=== PATIENT | female | born 1950 | race Caucasian/White ===

== ENCOUNTER 2018-08-03 18:50 | Inpatient (IN) | payer MEDICARE, OTHER ==
[~2018-08-03] VITALS: Ht 160 cm; Wt 71.4 kg
[2018-08-03 19:49] LABS: BASOPHILS ABSOLUTE AUTO 0.02 K/mm3 (0.00-0.23); BASOPHILS PERCENT AUTO 0 % (0-2); EOSINOPHILS PERCENT AUTO 0 % (0-6); Hematocrit 47.8 % (33.0-51.0); Hemoglobin 15.8 g/dL (11.5-16.0); IMMATURE GRAN ABSOLUTE AUTO 0.01 K/mm3 (0.00-0.10); IMMATURE GRAN PERCENT AUTO 0 % (0-1); LYMPHOCYTES ABSOLUTE AUTO 0.83 K/mm3 (0.84-5.20); LYMPHOCYTES PERCENT AUTO 11 % (21-46); MONOCYTES ABSOLUTE AUTO 0.45 K/mm3 (0.16-1.47); MONOCYTES PERCENT AUTO 6 % (4-13); Mean Corpuscular HGB 30.6 pg (26.0-34.0); Mean Corpuscular HGB Conc 33.1 g/dL (31.5-36.5); Mean Corpuscular Volume 93 fL (80-100); NEUTROPHILS ABSOLUTE AUTO 6.32 K/mm3 (1.96-9.15); NEUTROPHILS PERCENT AUTO 83 % (41-73); Platelet Count 181 K/mm3 (150-400); RDW Coefficient Variation 13.1 % (11.7-14.2); RDW Standard Deviation 44.9 fL (35.1-46.3); Red Blood Cell Count 5.17 M/mm3 (3.80-5.20); White Blood Cell Count 7.63 K/mm3 (4.00-11.30)
[2018-08-03 20:08] LABS: Alanine Aminotransfer (ALT/SGP 34 U/L (12-78); Albumin, Blood 3.9 g/dL (3.4-5.0); Alk Phos 74 U/L (50-136); Anion Gap 7 mmol/L (6-16); Aspartate Aminotrans (AST/SGOT 17 U/L (12-37); Bilirubin, Total 0.5 mg/dL (0.1-1.0); Blood Urea Nitrogen 15 mg/dL (8-24); Bun/Creatinine Ratio 27.4 (12.0-20.0); CO2, Blood 28 mmol/L (21-32); Calcium, Blood 9.4 mg/dL (8.5-10.1); Chloride, Blood 100 mmol/L (98-108); Creatinine, Blood 0.55 mg/dL (0.40-1.00); Glomerular Filtration Rate >60 (60-); Glucose, Blood 131 mg/dL (70-99); Potassium, Blood 3.4 mmol/L (3.5-5.5); Sodium, Blood 135 mmol/L (136-145); Total Protein, Blood 7.9 g/dL (6.4-8.2); Troponin I <0.015 ng/mL (0.000-0.040)
[2018-08-03] MEDS ORDERED: ALBU90OI6 INH (23:15)
[2018-08-03] MEDS ORDERED: Atrovent Inha12.9 GM INH (23:16)
[2018-08-03] MEDS ORDERED: STIOLTO RESPIMAT4 GM INH (23:16)
[2018-08-03] MEDS ORDERED: MONT10T PO (23:17)
[2018-08-03] MEDS ORDERED: NIFE60ER PO (23:17)
[2018-08-03] MEDS ORDERED: HYDCHL25 PO (23:18)
[2018-08-03 23:25] LABS: Base Excess Venous 3.2 mmol/L; Bicarbonate Venous 26.3 mmol/L (24.0-30.0); PCO2 Venous 50.5 mmHg (38-42); PO2 Venous 90.1 mmHg (38-42); pH Blood Venous 7.36 (7.34-7.37)
--- NOTE | 2018-08-04 02:09 | NUR ---
SHIFT SUMMARY 0115 RECEIVED PT TO RM 301 VIA GURNEY FROM ER. PT A&O, ABLE TO TX SELF WITH SBA TO BED. RECEIVED REPORT FROM KATHY WRIGHT, PT ADMITTED FOR COPD EXAC AFTER GOING TO [facility] WITH C/O SINUS CONGESTION, CHEST TIGHTNESS, AND WHEEZING. PT RECEIVED MULTIPLE NEB TX'S IN ER, ALONG WITH SOLUMEDROL, 1L NS, AND ZITHROMAX. PT ABLE TO TX TO BSC AND BACK TO BED, BUT BECOMES VERY SOB WITH ANY ACTIVITY. RESPIRATORY PANEL OBTAINED PER ORDERS. LUNGS T/O VERY TIGHT WITH EXP WHEEZES THRU OUT. CALL LT IN REACH. WILL MONITOR.
[2018-08-04 03:30] LABS: Adenovirus Not Detected (NOT DETECT); Bordetella pertussis Not Detected (NOT DETECT); Chlamydophila pneumoniae Not Detected (NOT DETECT); Coronavirus 229E Not Detected (NOT DETECT); Coronavirus HKU1 Not Detected (NOT DETECT); Coronavirus NL63 Not Detected (NOT DETECT); Coronavirus OC43 Detected (NOT DETECT); Human Metapneumovirus Not Detected (NOT DETECT); Human Rhinovirus/Enterovirus Not Detected (NOT DETECT); Influenza A Not Detected (NOT DETECT); Influenza A/2009-H1 Not Detected (NOT DETECT); Influenza A/H1 Not Detected (NOT DETECT); Influenza A/H3 Not Detected (NOT DETECT); Influenza B Not Detected (NOT DETECT); Mycoplasma pneumoniae Not Detected (NOT DETECT); Parainfluenza Virus 1 Not Detected (NOT DETECT); Parainfluenza Virus 2 Not Detected (NOT DETECT); Parainfluenza Virus 3 Not Detected (NOT DETECT); Parainfluenza Virus 4 Not Detected (NOT DETECT); Respiratory Syncytial Virus Not Detected (NOT DETECT)
--- NOTE | 2018-08-04 18:08 | NUR ---
SUMMARY PT IS A/O X4, PLEASANT AFFECT. UP IND, STATE SHORT OF BREATH W EXERT HOWEVER HAS IMPROVED T/O DAY. SHE IS GETTING SCHEDULED NEB TX'S & SOLUMEDROL. LUNGS TIGHT, WHEEZY, OCCASIONAL COUGH. O2 @ 1.5L BIOX >90% DX COPD EXAC, SHE IS + FOR CORONAVIRUS, RECIEVING ORAL ANTIBX. AFEBRILE, VSS.
[2018-08-05 04:47] LABS: BASOPHILS ABSOLUTE AUTO 0.02 K/mm3 (0.00-0.23); BASOPHILS PERCENT AUTO 0 % (0-2); EOSINOPHILS PERCENT AUTO 0 % (0-6); Hematocrit 44.8 % (33.0-51.0); Hemoglobin 14.5 g/dL (11.5-16.0); IMMATURE GRAN ABSOLUTE AUTO 0.07 K/mm3 (0.00-0.10); IMMATURE GRAN PERCENT AUTO 1 % (0-1); LYMPHOCYTES ABSOLUTE AUTO 1.35 K/mm3 (0.84-5.20); LYMPHOCYTES PERCENT AUTO 10 % (21-46); MONOCYTES ABSOLUTE AUTO 0.67 K/mm3 (0.16-1.47); MONOCYTES PERCENT AUTO 5 % (4-13); Mean Corpuscular HGB Conc 32.4 g/dL (31.5-36.5); Mean Platelet Volume 9.6 fL (9.1-12.4); NEUTROPHILS ABSOLUTE AUTO 11.14 K/mm3 (1.96-9.15); NEUTROPHILS PERCENT AUTO 84 % (41-73); Platelet Count 178 K/mm3 (150-400); RDW Coefficient Variation 13.2 % (11.7-14.2); RDW Standard Deviation 46.6 fL (35.1-46.3); Red Blood Cell Count 4.67 M/mm3 (3.80-5.20); White Blood Cell Count 13.25 K/mm3 (4.00-11.30)
[2018-08-05 05:04] LABS: Albumin, Blood 3.1 g/dL (3.4-5.0); Anion Gap 5 mmol/L (6-16); Blood Urea Nitrogen 16 mg/dL (8-24); Bun/Creatinine Ratio 33.6 (12.0-20.0); CO2, Blood 29 mmol/L (21-32); Calcium, Blood 8.8 mg/dL (8.5-10.1); Chloride, Blood 107 mmol/L (98-108); Creatinine, Blood 0.48 mg/dL (0.40-1.00); Glomerular Filtration Rate >60 (60-); Glucose, Blood 118 mg/dL (70-99); Magnesium, Blood 2.3 mg/dL (1.6-2.4); Phosphorus, Blood 2.8 mg/dL (2.5-4.9); Sodium, Blood 141 mmol/L (136-145)
[2018-08-05 05:07] LABS: Mean Corpuscular Volume 96 fL (80-100)
--- NOTE | 2018-08-05 17:20 | NUR ---
SHFIFT SUMMARY. A&OX4, INDEPENDENT TO BATHROOM, NO SAFETY CONCERNS. PT CONTINUES TO NOT REQUIRE O2, REPORTS SOB WITH EXERTION, LUNGS WITH MILD WHEEZING/TIGHT. PT DENIES PAIN, N/V. NO NEW CHANGES.
--- NOTE | 2018-08-06 16:46 | NUR ---
1630 PT DISCHARGED HOME VIA PERSONAL VEHICLE, PT REQUESTED TO SELF AMBULATE TO FACILITY ENTRANCE. IV REMOVED. NEW RX FAXED TO [facility] PER PT REQUEST. D/C PAPERWORK REVIEWED WITH PT AND COPY PROVIDED. NO NEW CHANGES. PT HAS DENEIED CP SINCE ADMISSION.
--- NOTE | 2018-08-06 18:17 | NUR ---
SHIFT SUMMARY. PT REPORTS FEELING A LITTLE BETTER TODAY COMPARED TO YESTERDAY. STILL SOB WITH EXERTOIN, CONTINUES WITH MILD WHEEZES T/O, ON RA. SOLUMEDROL CHANGED TO PREDNISONE. PT DENIES PAIN, SOB, N/V.
--- NOTE | 2018-08-07 05:52 | NUR ---
SOUND EFFECTS SUPERVISOR SUMMARY NO ACUTE CHANGES THIS SHIFT. PT AAOX4 AND INDEPENDENT IN ROOM. VERY PLEASANT. STATES BREATHING "IS BETTER" BUT STILL A BIT SOB WITH EXERTION. PT RECOVERS WELL WITHIN A FEW MINUTES OF SITTING DOWN ON ROOM AIR. PT DENIES PAIN. NO COMPLAINTS THROUGH THE NIGHT. VSS, WILL CONTINUE TO MONITOR.
--- NOTE | 2018-08-07 18:03 | NUR ---
SHIFT SUMMARY. PT DID NOT REQUIRE O2 DURING THIS SHIFT, LUNGS SOUNDS STILL WITH WHEEZES T/O, ALTHOUGH HAVE IMPROVED FROM YESTERDAY. HOME O2 EVAL REVEALED PT DID NOT QUALIFY FOR HOME O2. PT CONTINUES WITH SOB WITH EXERTION. PT ONLY TOLERATING APROXIMATELY 10FT OF AMBULATION AT TIME. NO OTHER CHANGES.
--- NOTE | 2018-08-08 04:46 | NUR ---
DIRECTOR DANCE SUMMARY NO ACUTE CHANGES THIS SHIFT. PT AAOX4 AND INDEPENDENT IN THE ROOM. O2 SATS REMAIN >90% ON ROOM AIR. PT REPORTS LESS SOB WITH EXERTION. DENIES PAIN, N/V. HOME O2 EVAL DURING DAY SHIFT REVEALED PT DOES NOT NEED O2 AT HOME AT THIS TIME. PROBABLY DC LATER TODAY. VSS, WILL CONTINUE TO MONITOR.
--- NOTE | 2018-08-08 09:06 | NUR ---
Medications administered. Pt refused Lovenox.
--- NOTE | 2018-08-08 09:06 | NUR ---
Pt gave permission to provide care and access chart.
[2018-08-08] MEDS ORDERED: CITRACAL D + H1 EACH (10:55)
[2018-08-08] MEDS ORDERED: Flonase 0.05% N16 GM (10:56)
[2018-08-08] MEDS ORDERED: SEEBRI NEOHALER (11:03)
[2018-08-08] MEDS ORDERED: MELATONIN5 M1 PO (11:04)
[2018-08-08] MEDS ORDERED: Mucinex1200 MG PO (11:04)
[2018-08-08] MEDS ORDERED: DULERA 200 MCG/13 GM INH (11:05)
[2018-08-08] MEDS ORDERED: PRED20 (11:11)
[2018-08-08] MEDS ORDERED: (None)20 M1 PO (12:39)
[2018-08-08] MEDS ORDERED: TIOT18 INH (12:40)
[2018-08-08] MEDS ORDERED: FLUT1DIS5 INH (12:44)
--- NOTE | 2018-08-08 16:41 | NUR ---
PT DISCHARGED PT WAS DC'D AROUND 1330, PT VERBALIZED UNDERSTANDING OF THE DC INSTRUCTIONS, THE PT WAS A/OX3 PLEASANT AND COOPERATIVE, THE PT APPEARED TO BE BREATHING EASILY AT DISCHARGE, THE PTS PERSCRIPTION WERE FAXED TO [facility] REQUESTED, THE PT WAS TRANSFERED VIA WHEELCHAIR ACCOMPANIED BY FAMILY AND THE AUTOMOTIVE TECHNOLOGY INSTRUCTOR.
== END 2018-08-08 13:05 | disposition home or self-care (01) | DRG 189 ==
LOC: ER 18:50 → MEDS 23:31 → ENPENDDIS 08-08 10:36 → MEDS 08-08 13:05
PROVIDERS: Emergency Medicine; Internal Medicine; Nurse Practitioner Acute Care; Physician Assistant; ADMIT Hospitalist
DX: J96.01 Acute respiratory failure with hypoxia (principal); J81.1 Chronic pulmonary edema; M81.0 Age-related osteoporosis without current pathological fracture; E87.6 Hypokalemia; R73.9 Hyperglycemia, unspecified; Z87.891 Personal history of nicotine dependence; I10 Essential (primary) hypertension; J43.9 Emphysema, unspecified; D35.01 Benign neoplasm of right adrenal gland
CPT/HCPCS: 36415; 71046; 71260; 80053; 80069; 82803; 83605; 83735; 84484; 85025; 87486; 87581; 87633; 87798; 93005; 93010; 94640; 94644; 94760; 94761; 96361; 96374; 97116; 97161; 99285-25; J1650; J2930; J7030; Q9967

== ENCOUNTER → 2019-01-01 | Outpatient (CLI) | payer MEDICARE, OTHER ==
[~2019-01-01] MED LIST: (None)20 M1 PO; ALBU90OI6 INH; Atrovent Inha12.9 GM INH; CITRACAL D + H1 EACH; DULERA 200 MCG/13 GM INH; FLUT1DIS5 INH; Flonase 0.05% N16 GM; HYDCHL25 PO; MELATONIN5 M1 PO; MONT10T PO; Mucinex1200 MG PO; NIFE60ER PO; PRED20; SEEBRI NEOHALER; STIOLTO RESPIMAT4 GM INH; TIOT18 INH
== END | disposition home or self-care (01) ==
LOC: PLD 08:22 → LAB SHORT 08:22
DX: D22.71 Melanocytic nevi of right lower limb, including hip (principal)
CPT/HCPCS: 88305

== ENCOUNTER 2019-06-15 12:34 | Day surgery (SDC) | payer MEDICARE, OTHER ==
[~2019-06-15] VITALS: Ht 157.5 cm; Wt 74.4 kg
--- NOTE | 2019-06-15 13:52 | NUR ---
06/15/19 1352 Christi Kramer 1 IV MISS IN RH BY TENA VALVE 1 GOOD IV IN RAC BY TENA PT TOW
== END 2019-06-15 15:35 | disposition home or self-care (01) ==
LOC: ORSCSDS 12:34
PROVIDERS: Internal Medicine Gastroenterology
PROC: 0DBP8ZX Excision of Rectum, Via Natural or Artificial Opening Endoscopic, Diagnostic (ICD-10-PCS; principal; 2019-06-15 14:15)
DX: Z12.11 Encounter for screening for malignant neoplasm of colon (principal); Z86.010 Personal history of colon polyps; K62.1 Rectal polyp; K57.30 Diverticulosis of large intestine without perforation or abscess without bleeding; J44.9 Chronic obstructive pulmonary disease, unspecified; K21.9 Gastro-esophageal reflux disease without esophagitis; I10 Essential (primary) hypertension; E66.9 Obesity, unspecified; I49.9 Cardiac arrhythmia, unspecified; Z68.30 Body mass index [BMI] 30.0-30.9, adult; K62.89 Other specified diseases of anus and rectum; K52.9 Noninfective gastroenteritis and colitis, unspecified; Z87.891 Personal history of nicotine dependence; Z79.899 Other long term (current) drug therapy
CPT/HCPCS: 88305; J2704; J7120

== ENCOUNTER → 2020-03-19 | Outpatient (CLI) | payer MEDICARE, OTHER | END | disposition home or self-care (01) | LOC: PLD 14:05 → LAB SHORT 14:05 | DX: D22.61 Melanocytic nevi of right upper limb, including shoulder (principal) | CPT/HCPCS: 88305 ==

== ENCOUNTER 2023-10-03 15:05 | Emergency (ER) | payer MEDICARE, OTHER ==
[~2023-10-03] VITALS: Ht 162.6 cm; Wt 68.0 kg
[~2023-10-03 15:05] MED LIST changes: -ALBU90OI6 INH; +ATOR40TA PO; +METO50 PO; +PROAIR DIGIHAL90 MCG INH; +STIOLTO RESPIMAT4 G2 INH; -STIOLTO RESPIMAT4 GM INH; +XARELTO20 MG PO
[2023-10-03 15:06] VITALS: BP 192/82
[2023-10-03] MEDS ORDERED: CEPH500 PO (15:15)
== END 2023-10-03 15:18 | disposition home or self-care (01) ==
LOC: ER 15:05
DX: L03.114 Cellulitis of left upper limb (principal); Z87.891 Personal history of nicotine dependence
CPT/HCPCS: 99283

== ENCOUNTER 2023-12-15 12:11 | Inpatient (IN) | payer MEDICARE, OTHER ==
[~2023-12-15] VITALS: Ht 157.5 cm; Wt 74.0 kg
[~2023-12-15 12:11] MED LIST changes: +CEPH500 PO
[2023-12-15 13:39] LABS: BASOPHILS ABSOLUTE AUTO 0.05 K/mm3 (0.00-0.23); BASOPHILS PERCENT AUTO 1 % (0-2); EOSINOPHILS ABSOLUTE AUTO 0.07 K/mm3 (0.00-0.68); EOSINOPHILS PERCENT AUTO 1 % (0-6); Hematocrit 43.9 % (33.0-51.0); Hemoglobin 14.4 g/dL (11.5-16.0); IMMATURE GRAN ABSOLUTE AUTO 0.01 K/mm3 (0.00-0.10); IMMATURE GRAN PERCENT AUTO 0 % (0-1); LYMPHOCYTES ABSOLUTE AUTO 1.62 K/mm3 (0.84-5.20); LYMPHOCYTES PERCENT AUTO 19 % (21-46); MONOCYTES ABSOLUTE AUTO 0.65 K/mm3 (0.16-1.47); MONOCYTES PERCENT AUTO 8 % (4-13); Mean Corpuscular HGB 30.6 pg (26.0-34.0); Mean Corpuscular HGB Conc 32.8 g/dL (31.5-36.5); Mean Corpuscular Volume 93 fL (80-100); Mean Platelet Volume 8.8 fL (9.1-12.4); NEUTROPHILS ABSOLUTE AUTO 5.98 K/mm3 (1.96-9.15); NEUTROPHILS PERCENT AUTO 71 % (41-73); Platelet Count 192 K/mm3 (150-400); RDW Coefficient Variation 12.8 % (11.7-14.2); RDW Standard Deviation 44.3 fL (35.1-46.3); White Blood Cell Count 8.38 K/mm3 (4.00-11.30)
[2023-12-15 14:06] LABS: Albumin, Blood 3.6 g/dL (3.4-5.0); Bilirubin, Total 0.5 mg/dL (0.1-1.0); Bun/Creatinine Ratio 26.8 (12.0-20.0); Calcium, Blood 9.2 mg/dL (8.5-10.1); Creatinine, Blood 0.86 mg/dL (0.40-1.00); Globulin, Blood 3.7 g/dL (2.2-4.0); Potassium, Blood 4.2 mmol/L (3.5-5.5); Total Protein, Blood 7.3 g/dL (6.4-8.2)
[2023-12-15] MEDS ORDERED: MethylPREDNISolone Sod Succ 125 MG Vial IV ONE (14:25)
[2023-12-15] MEDS ORDERED: Ipratropium/Albuterol SulF 2.5-0.5MG/3 ML Amp INH ONE (14:25)
[2023-12-15 15:29] LABS: Influenza A, PCR NEGATIVE (NEGATIVE); Influenza B, PCR NEGATIVE (NEGATIVE); Resp Syncytial Virus, PCR NEGATIVE (NEGATIVE); SARS-Cov-2 (COVID-19) PCR, MMC NEGATIVE (NEGATIVE)
[2023-12-15] MEDS ORDERED: LOSA25 PO (15:35)
[2023-12-15] MEDS ORDERED: Furosemide 10 MG / ML 2ML Vial IV ONE (16:00)
[2023-12-15] MEDS ORDERED: Diltiazem HCl 5 MG / ML 5ML Vial IV ONE (16:00)
[2023-12-15] MEDS ORDERED: Acetaminophen 325 MG TABLET PO PRN (17:40)
[2023-12-15] MEDS ORDERED: Albuterol 2.5 MG/3 ML VIAL INH PRN (17:40)
[2023-12-15] MEDS ORDERED: Ipratropium/Albuterol SulF 2.5-0.5MG/3 ML Amp INH SCH ×2 (17:50→22:36)
[2023-12-15] MEDS ORDERED: Metoprolol Tartrate 50 MG Tab PO ONE (20:00)
[2023-12-15] MEDS ORDERED: Rivaroxaban 10 MG Tab PO ONE (20:00)
[2023-12-15] MEDS ORDERED: Rivaroxaban 10 MG Tab PO SCH (21:00)
[2023-12-15 22:00] VITALS: BP 126/97
[2023-12-15] MEDS ORDERED: TRIA15CR3 TOP (22:13)
[2023-12-15] MEDS ORDERED: METR59TL TOP (22:15)
--- NOTE | 2023-12-16 05:54 | NUR ---
PT TO ROOM AT 2152 FROM ER AND ASSUMED CARE PT AOX4 ABLE TO TRANSFER FROM [facility] TO BED W/O PROBLEM. PT DAUGHTER AT BEDSID. PT ABLE TO ANSWER ALL ADMIT QUESTIONS AND HAD MED LIST PRESENT WHICH WAS REVIEWED WITH PT. PT PLACED ON MONITOR AND NOTED TO BE IN A.FIB W/RVR AND WAS ON CARDIZEM DRIP FROM ED AT 5MG/HR. PT HR DID IMPROVE AND DR. PEREZ CALLED AND OBTAINED ORDER TO D/C DRIP. PT MAINTAINED HR WITHIN PARAMETERS AND HAS REMAINED OFF DILTIAZEM DRIP. PT IS HOME O2 USER AT BASELINE AND REMAINS AT HOME O2 RATE OF 2L MAINTAINING GOOD SAT. PT ABLE TO USE BEDSIDE COMMODE WITH SBA. VITAL SIGNS REMAIN STABLE. PT REMAINS ORIENTED, CALM, COOPERATIVE, AND PLEASANT. SEE DOWNTIME FORMS FOR OTHER SHIFT CHARTING.
[2023-12-16] MEDS ORDERED: Metoprolol Tartrate 50 MG Tab PO SCH ×2 (08:00→17:00)
[2023-12-16] MEDS ORDERED: Losartan Potassium 25 MG Tab PO SCH (09:00)
[2023-12-16] MEDS ORDERED: Montelukast Sodium 10 MG Tab PO SCH (09:00)
[2023-12-16] MEDS ORDERED: Rivaroxaban 10 MG Tab PO SCH (09:00)
[2023-12-16] MEDS ORDERED: Atorvastatin 40 MG Tab PO SCH (09:00)
[2023-12-16 12:00] VITALS: BP 115/60
[2023-12-16 16:30] VITALS: BP 125/77
--- NOTE | 2023-12-16 17:47 | NUR ---
PT HAD CONVERTED FROM AFIB TO NSR THIS MORNING AND HAS REMAINED IN SR-ST SINCE. SHE AMBULATED IN THE [place] TODAY WITHOUT DIFFICULTY. SHE WAS HOPEFUL TO GO HOME TODAY BUT DUE TO DOSE INCREASE AND NO ONE BEING ABLE TO HELP HER THIS EVENING AT HOME SHE OPTED TO STAY THE NIGHT. FRIEND CAME TO THE DESK ASKING WHY PATIENT HAS NOT HAD INCREASED DOSE IN LOPRESSOR, SHE IS UDPATED THAT LOPRESSOR IS DUE THIS EVENING. FRIEND THEN STATES THAT PATIENT IS TO BE THE FIRST PERSON SEEN IN THE AM BY AND WOULD LIKE TO KNOW WHEN THEY PLAN TO ROUND, SHE IS UPDATED THAT I DO NOT HAVE A TIME FOR HIS ROUNDING TOMORROW. PLAN IS TO D/C TOMORROW
[2023-12-16] MEDS ORDERED: Calcium Carbonate 500 MG Tab Chew PO PRN (18:35)
[2023-12-16 20:23] VITALS: BP 129/56
[2023-12-16] MEDS ORDERED: Metoprolol Tartrate 50 MG Tab PO ONE (21:10)
--- NOTE | 2023-12-16 21:16 | NUR ---
CONFIRMED WITH PRIMARY RN FOR DAYSJORGE COLMENARES TO CONFIRM 1700 DOSE OF METOPROLOL WAS NOT GIVEN. SHE STATES PER DOWNTIME CHARTING 0800 DOSE WAS GIVING TO PT @ 0820 IN PAPER JUL, 1700 DOSE WAS NOT GIVEN AT ALL. ORDER PLACED FOR EVENING DOSE OF METOPROLOL X1 TO ENSURE PT RECEIVED 2ND DOSE TODAY PER WRITTEN ORDERS.
[2023-12-16 23:59] VITALS: BP 117/58
[2023-12-17 04:02] VITALS: BP 114/60
--- NOTE | 2023-12-17 06:25 | NUR ---
SHIFT SUMMARY NO ACUTE CHANGES TO REPORT OVERNIFHT. PT HAS RESTED MOST OF THE NIGHT. RATE HAS BEEN CONTROLLED ON TELE, VITALS ARE STABLE. SHE HAS BEEN INDEPENDENT IN THE ROOM. DENIES NEEDS. BED IN LOWEST POSITION, CALL LIGHT WITHIN REACH.
[2023-12-17 07:51] VITALS: BP 133/88
[2023-12-17] MEDS ORDERED: Furosemide 20 MG Tab PO ONE (08:10)
--- NOTE | 2023-12-17 09:07 | NUR ---
PT AMBU;ATED WITH EVEN STEADY GAIT, NO INCREASE IN HR AND NO INCREASE IN SOB
== END 2023-12-17 12:47 | disposition home or self-care (01) | DRG 309 ==
LOC: ER 12:11 → ERHOLD 12:12 → PCU 12:12
PROVIDERS: Emergency Medicine; Student in an Organized Health Care Education/Training Program; ADMIT Hospitalist
DX: I48.0 Paroxysmal atrial fibrillation (principal); I50.42 Chronic combined systolic (congestive) and diastolic (congestive) heart failure; J44.9 Chronic obstructive pulmonary disease, unspecified; Z99.81 Dependence on supplemental oxygen; I11.0 Hypertensive heart disease with heart failure; Z86.73 Personal history of transient ischemic attack (TIA), and cerebral infarction without residual deficits; Z79.899 Other long term (current) drug therapy; Z79.01 Long term (current) use of anticoagulants; Z88.5 Allergy status to narcotic agent; Z88.7 Allergy status to serum and vaccine; Z87.891 Personal history of nicotine dependence; M81.0 Age-related osteoporosis without current pathological fracture; Z86.010 Personal history of colon polyps; Z87.19 Personal history of other diseases of the digestive system; Z98.890 Other specified postprocedural states
CPT/HCPCS: 0241U; 36415; 71046; 80053; 83880; 84484; 85025; 93005; 93010; 94640; 94664; 94760; 94762; 96374; 96375; 96376; 99285-25; A9270; G0378; J1940; J2919

== ENCOUNTER → 2024-06-27 | Outpatient (CLI) | payer MEDICARE ==
[~2024-06-27] MED LIST changes: +LOSA25 PO; +METR59TL TOP; +TRIA15CR3 TOP
== END | disposition home or self-care (01) ==
LOC: LAB 14:08 → LAB SHORT 14:08
DX: J44.1 Chronic obstructive pulmonary disease with (acute) exacerbation (principal); R05.1 Acute cough
CPT/HCPCS: 87070; 87205

== ENCOUNTER 2025-01-11 13:38 | Emergency (ER) | payer MEDICARE, OTHER ==
[~2025-01-11] VITALS: Ht 167.6 cm; Wt 93.0 kg
[2025-01-11] MEDS ORDERED: Diltiazem HCl 5 MG / ML 5ML Vial IV ONE (13:45)
[2025-01-11 13:52] LABS: BASOPHILS ABSOLUTE AUTO 0.04 K/mm3 (0.00-0.23); BASOPHILS PERCENT AUTO 1 % (0-2); EOSINOPHILS ABSOLUTE AUTO 0.15 K/mm3 (0.00-0.68); EOSINOPHILS PERCENT AUTO 2 % (0-6); Hematocrit 42.8 % (33.0-51.0); Hemoglobin 14.4 g/dL (11.5-16.0); IMMATURE GRAN ABSOLUTE AUTO 0.02 K/mm3 (0.00-0.10); IMMATURE GRAN PERCENT AUTO 0 % (0-1); LYMPHOCYTES ABSOLUTE AUTO 1.87 K/mm3 (0.84-5.20); LYMPHOCYTES PERCENT AUTO 22 % (21-46); MONOCYTES ABSOLUTE AUTO 0.88 K/mm3 (0.16-1.47); MONOCYTES PERCENT AUTO 10 % (4-13); Mean Corpuscular HGB Conc 33.6 g/dL (31.5-36.5); Mean Corpuscular Volume 94 fL (80-100); NEUTROPHILS ABSOLUTE AUTO 5.64 K/mm3 (1.96-9.15); NEUTROPHILS PERCENT AUTO 66 % (41-73); NRBC ABSOLUTE 0.00 K/mm3 (0.00-0.02); NRBC Auto 0.0 /100 WBC (0.0-0.2); Platelet Count 234 K/mm3 (150-400); RDW Coefficient Variation 12.5 % (11.7-14.2); RDW Standard Deviation 43.0 fL (35.1-46.3)
[2025-01-11 14:22] LABS: Anion Gap 7.0 mmol/L (3-11); Blood Urea Nitrogen 16.0 mg/dL (8-24); CO2, Blood 32.0 mmol/L (21-32); Calcium, Blood 9.4 mg/dL (8.5-10.1); Chloride, Blood 101.0 mmol/L (98-108); Creatinine, Blood 0.78 mg/dL (0.40-1.00); Glucose, Blood 120.0 mg/dL (70-99); Magnesium, Blood 2.1 mg/dL (1.6-2.4); Potassium, Blood 4.4 mmol/L (3.5-5.5); Sodium, Blood 136.0 mmol/L (136-145); Thyroid Stimulating Hormone 0.996 uIU/mL (0.360-4.800)
[2025-01-11 15:30] VITALS: BP 118/66
== END 2025-01-11 15:33 | disposition home or self-care (01) ==
LOC: ER 13:38
PROVIDERS: Emergency Medicine
DX: I48.91 Unspecified atrial fibrillation (principal); J44.9 Chronic obstructive pulmonary disease, unspecified; I11.0 Hypertensive heart disease with heart failure; I50.30 Unspecified diastolic (congestive) heart failure; Z86.73 Personal history of transient ischemic attack (TIA), and cerebral infarction without residual deficits; Z87.891 Personal history of nicotine dependence; Z79.899 Other long term (current) drug therapy; Z88.5 Allergy status to narcotic agent; Z88.7 Allergy status to serum and vaccine
CPT/HCPCS: 71045; 80048; 83735; 83880; 84439; 84443; 84484; 85025; 93005; 93010; 96374; 99284-25

== ENCOUNTER 2025-02-02 19:14 | Emergency (ER) | payer MEDICARE, OTHER ==
[~2025-02-02] VITALS: Ht 157.5 cm; Wt 72.6 kg
[2025-02-02] MEDS ORDERED: Ipratropium/Albuterol SulF 2.5-0.5MG/3 ML Amp INH ONE (19:30)
[2025-02-02 20:01] LABS: pH Blood Venous 7.38 (7.34-7.37)
[2025-02-02 20:15] LABS: BASOPHILS ABSOLUTE AUTO 0.03 K/mm3 (0.00-0.23); BASOPHILS PERCENT AUTO 0 % (0-2); EOSINOPHILS ABSOLUTE AUTO 0.21 K/mm3 (0.00-0.68); EOSINOPHILS PERCENT AUTO 2 % (0-6); Hematocrit 41.6 % (33.0-51.0); Hemoglobin 13.7 g/dL (11.5-16.0); IMMATURE GRAN ABSOLUTE AUTO 0.02 K/mm3 (0.00-0.10); IMMATURE GRAN PERCENT AUTO 0 % (0-1); LYMPHOCYTES ABSOLUTE AUTO 1.75 K/mm3 (0.84-5.20); LYMPHOCYTES PERCENT AUTO 17 % (21-46); MONOCYTES ABSOLUTE AUTO 0.91 K/mm3 (0.16-1.47); MONOCYTES PERCENT AUTO 9 % (4-13); Mean Corpuscular HGB Conc 32.9 g/dL (31.5-36.5); Mean Corpuscular Volume 95 fL (80-100); NEUTROPHILS ABSOLUTE AUTO 7.22 K/mm3 (1.96-9.15); NEUTROPHILS PERCENT AUTO 71 % (41-73); NRBC ABSOLUTE 0.00 K/mm3 (0.00-0.02); NRBC Auto 0.0 /100 WBC (0.0-0.2); Platelet Count 192 K/mm3 (150-400); RDW Coefficient Variation 12.3 % (11.7-14.2); RDW Standard Deviation 43.4 fL (35.1-46.3)
[2025-02-02 20:43] LABS: Anion Gap 5.0 mmol/L (3-11); Blood Urea Nitrogen 17.0 mg/dL (8-24); CO2, Blood 32.0 mmol/L (21-32); Calcium, Blood 9.0 mg/dL (8.5-10.1); Chloride, Blood 105.0 mmol/L (98-108); Creatinine, Blood 0.64 mg/dL (0.40-1.00); Glucose, Blood 126.0 mg/dL (70-99); Magnesium, Blood 2.4 mg/dL (1.6-2.4); Potassium, Blood 3.9 mmol/L (3.5-5.5); Sodium, Blood 138.0 mmol/L (136-145); Thyroid Stimulating Hormone 0.91 uIU/mL (0.360-4.800)
[2025-02-02 20:44] LABS: Influenza A, PCR NEGATIVE (NEGATIVE); Influenza B, PCR NEGATIVE (NEGATIVE); Resp Syncytial Virus, PCR NEGATIVE (NEGATIVE); SARS-Cov-2 (COVID-19) PCR, MMC NEGATIVE (NEGATIVE)
[2025-02-02] MEDS ORDERED: PRED20 PO (20:57)
[2025-02-02 21:15] VITALS: BP 148/74
== END 2025-02-02 21:38 | disposition home or self-care (01) ==
LOC: ER 19:14
PROVIDERS: Emergency Medicine
DX: J44.1 Chronic obstructive pulmonary disease with (acute) exacerbation (principal); R00.2 Palpitations; I11.0 Hypertensive heart disease with heart failure; I50.30 Unspecified diastolic (congestive) heart failure; Z87.891 Personal history of nicotine dependence; Z86.73 Personal history of transient ischemic attack (TIA), and cerebral infarction without residual deficits; Z79.899 Other long term (current) drug therapy; Z88.5 Allergy status to narcotic agent; Z88.7 Allergy status to serum and vaccine
CPT/HCPCS: 71045; 80048; 82803; 83735; 84439; 84443; 84484; 85025; 87637; 93005; 93010; 96374; 99285-25; A9270; J2919

== ENCOUNTER 2025-02-19 14:50 | Inpatient (IN) | payer MEDICARE, OTHER ==
[~2025-02-19] VITALS: Ht 167.6 cm; Wt 75.2 kg
[~2025-02-19 14:50] MED LIST changes: +PRED20 PO
[2025-02-19 15:35] LABS: BASOPHILS ABSOLUTE AUTO 0.05 K/mm3 (0.00-0.23); BASOPHILS PERCENT AUTO 1 % (0-2); EOSINOPHILS ABSOLUTE AUTO 0.14 K/mm3 (0.00-0.68); EOSINOPHILS PERCENT AUTO 1 % (0-6); Hematocrit 42.6 % (33.0-51.0); Hemoglobin 14.1 g/dL (11.5-16.0); IMMATURE GRAN ABSOLUTE AUTO 0.02 K/mm3 (0.00-0.10); IMMATURE GRAN PERCENT AUTO 0 % (0-1); LYMPHOCYTES ABSOLUTE AUTO 1.91 K/mm3 (0.84-5.20); LYMPHOCYTES PERCENT AUTO 19 % (21-46); MONOCYTES ABSOLUTE AUTO 0.73 K/mm3 (0.16-1.47); MONOCYTES PERCENT AUTO 7 % (4-13); Mean Corpuscular HGB Conc 33.1 g/dL (31.5-36.5); Mean Corpuscular Volume 96 fL (80-100); NEUTROPHILS ABSOLUTE AUTO 7.16 K/mm3 (1.96-9.15); NEUTROPHILS PERCENT AUTO 72 % (41-73); NRBC ABSOLUTE 0.00 K/mm3 (0.00-0.02); NRBC Auto 0.0 /100 WBC (0.0-0.2); Platelet Count 250 K/mm3 (150-400); RDW Coefficient Variation 12.3 % (11.7-14.2); RDW Standard Deviation 43.4 fL (35.1-46.3)
[2025-02-19] MEDS ORDERED: Albuterol 2.5 MG/3 ML VIAL INH SCH (15:45)
[2025-02-19 16:06] LABS: Alanine Aminotransfer (ALT/SGP 52.0 U/L (12-78); Albumin, Blood 3.4 g/dL (3.4-5.0); Albumin/Globulin Ratio 0.7 (0.8-1.8); Anion Gap 7.0 mmol/L (3-11); Aspartate Aminotrans (AST/SGOT 29.0 U/L (12-37); Bilirubin, Total 0.6 mg/dL (0.1-1.0); Blood Urea Nitrogen 15.0 mg/dL (8-24); CO2, Blood 32.0 mmol/L (21-32); Calcium, Blood 9.8 mg/dL (8.5-10.1); Chloride, Blood 103.0 mmol/L (98-108); Creatinine, Blood 0.78 mg/dL (0.40-1.00); Globulin, Blood 4.6 g/dL (2.2-4.0); Glucose, Blood 123.0 mg/dL (70-99); Potassium, Blood 4.0 mmol/L (3.5-5.5); Sodium, Blood 138.0 mmol/L (136-145); Total Protein, Blood 8.0 g/dL (6.4-8.2)
[2025-02-19 16:18] LABS: Influenza A, PCR NEGATIVE (NEGATIVE); Influenza B, PCR NEGATIVE (NEGATIVE); Resp Syncytial Virus, PCR NEGATIVE (NEGATIVE); SARS-Cov-2 (COVID-19) PCR, MMC NEGATIVE (NEGATIVE)
[2025-02-19 16:50] LABS: Source, Urine Clean Catch
[2025-02-19] MEDS ORDERED: Diltiazem HCl 5 MG / ML 5ML Vial IV ONE ×2 (17:40→18:45)
[2025-02-19] MEDS ORDERED: Diltiazem HCl 5 MG / ML 5ML Vial ONE (17:43)
[2025-02-19 18:00] LABS: Bilirubin, Urine Neg (Neg); Glucose Qualitative, Urine Neg (Neg); Ketones, Urine Neg (Neg); Leukocyte Esterase, Urine Neg (Neg); Protein, Urine Neg (Neg); Specific Gravity, Urine 1.005 (1.003-1.022); Urobilinogen, Urine NORM (Normal)
[2025-02-19 18:03] LABS: Color, Urine Pale Yellow (P-Yellow)
[2025-02-19] MEDS ORDERED: Ipratropium/Albuterol SulF 2.5-0.5MG/3 ML Amp INH SCH (19:15)
[2025-02-19] MEDS ORDERED: Albuterol 2.5 MG/3 ML VIAL INH PRN (19:15)
[2025-02-19] MEDS ORDERED: Ondansetron HCl 2 MG / ML 2ML Vial IV PRN (19:15)
[2025-02-19] MEDS ORDERED: FLU VACC TS2025(65UP)/MF59C/PF 45 MCG/0.5 ML SYRINGE IM SCH (19:40)
[2025-02-19 20:29] LABS: pH Blood Venous 7.37 (7.34-7.37)
[2025-02-19 21:51] VITALS: BP 133/62
[2025-02-19] MEDS ORDERED: FURO80 PO (23:13)
[2025-02-19] MEDS ORDERED: POTA10T PO (23:13)
[2025-02-19] MEDS ORDERED: ROFL500T (23:14)
[2025-02-20] VITALS (8 sets, daily range): BP systolic 113–131; BP diastolic 66–84
--- NOTE | 2025-02-20 00:04 | NUR ---
ADMIT NOTE REPORT REVICED BY THIS RN FROM CLINICAL RESEARCH SPEC @ APPROX 2107 PT ARRIVED TO PCU 19 @ APPROX 2129, PT SELF TRANSFERED TO BED SBA PT ALERT AND HOLDING APPRORIATE CONVERSATION, PT REPOTING SOB AFTER TRANSFERING FROM ER BED TO PCU BED, CARDIZEM DRIP INFUSING AT 10MG/HR, VSS.
[2025-02-20 00:34] LABS: Influenza A/2009-H1 Not Detected (NOT DETECT); SARS-Cov-2 (COVID-19), BioFire Not Detected (NOT DETECT)
[2025-02-20 04:16] LABS: Hematocrit 38.2 % (33.0-51.0); Hemoglobin 12.7 g/dL (11.5-16.0); Mean Corpuscular HGB Conc 33.2 g/dL (31.5-36.5); Mean Corpuscular Volume 93 fL (80-100); NRBC ABSOLUTE 0.00 K/mm3 (0.00-0.02); NRBC Auto 0.0 /100 WBC (0.0-0.2); Platelet Count 229 K/mm3 (150-400); RDW Coefficient Variation 12.3 % (11.7-14.2); RDW Standard Deviation 42.3 fL (35.1-46.3)
[2025-02-20 04:44] LABS: Anion Gap 7.0 mmol/L (3-11); Blood Urea Nitrogen 16.0 mg/dL (8-24); CO2, Blood 32.0 mmol/L (21-32); Calcium, Blood 9.0 mg/dL (8.5-10.1); Chloride, Blood 103.0 mmol/L (98-108); Creatinine, Blood 0.66 mg/dL (0.40-1.00); Glucose, Blood 164.0 mg/dL (70-99); Potassium, Blood 3.8 mmol/L (3.5-5.5); Sodium, Blood 138.0 mmol/L (136-145)
--- NOTE | 2025-02-20 05:59 | NUR ---
SHIFT SUMMARY PT A&O X4, HOLDING APPROPRIATE CONVERSATION, MOVING ALL EXTREMITIES WITH PURPOSE, OBEYS COMMANDS, REPOSITIONING SELF IN BED, SBA TO BSC WITH FWW, CALLS APPROPRIATELY. CONTINUOUS SPO2, SPO2 GREATER THAN 92% ON BASELINE 2L O2 VIA NC/TIRATED FROM 6L O2 VIA NC, LUNGS SOUND DIM T/O, PT REPORTS SOB THAT WORSENS WITH ACTIVITY, NO SIGNS OF RESPIRATORY DISTRESS NOTED. CONTINUOUS TELE MONITORING, AFIB 70-80 S, CARDIZEM ON SB SINCE 0000, CAP REFILL WNL, PULSES PRESENT T/O, DENIES CHEST P/P T/O THIS SHIFT. BOWEL TONES PRESENT IN ALL 4Q, PT DENIES FEELINGS OF NAUSEA OR CONSTIPATION OR PAIN. VOIDING IND, URINE YELLOW IN COLOR BED LOWEST POSITION, CALL LIGHT IN REACH, AWAITING TO GIVE REPORT TO ONCOMING RN.
[2025-02-20] MEDS ORDERED: Amiodarone HCl 150 MG in NS 100 ML IV ONE (15:40)
[2025-02-20] MEDS ORDERED: Amiodarone HCl 450 MG in NS 250 ML IV SCH (16:00)
--- NOTE | 2025-02-20 18:11 | NUR ---
SHIFT SUMMARY: PT A&OX4 FOLLOWS COMMANDS AND MAKES NEEDS KNOWN TO STAFF. PT GOT UP TO THE BATHROOM MULTIPLE TIMES THIS SHIFT WITH SBA. REPORTED SOME SOB AFTER ACTIVITY BUT VERY MILD. REMAINED FREE OF ANY CP, PRESSURE OR TIGHTNESS. PT WAS ON AND OFF OF THE CARDIZEM DRIP TODAY WITH NO IMPROVEMENT TO HR SO WAS STARTED ON AMIO DRIP THIS LATE AFTERNOON. PTS IN AFIB WITH HR IN THE 110-120'S AT THIS TIME. BLOOD PRESSURE STABLE. NO OTHER SIGNIFICANT EVENTS HAPPENED DURING THIS SHIFT. WILL CONTINUE TO CARE FOR PT TILL END OF SHIFT.
[2025-02-21 00:49] VITALS: BP 125/65
[2025-02-21 03:50] VITALS: BP 112/66
[2025-02-21 04:21] LABS: BASOPHILS ABSOLUTE AUTO 0.02 K/mm3 (0.00-0.23); BASOPHILS PERCENT AUTO 0 % (0-2); EOSINOPHILS ABSOLUTE AUTO 0.01 K/mm3 (0.00-0.68); EOSINOPHILS PERCENT AUTO 0 % (0-6); Hematocrit 42.2 % (33.0-51.0); Hemoglobin 13.6 g/dL (11.5-16.0); IMMATURE GRAN ABSOLUTE AUTO 0.10 K/mm3 (0.00-0.10); IMMATURE GRAN PERCENT AUTO 0 % (0-1); LYMPHOCYTES ABSOLUTE AUTO 0.93 K/mm3 (0.84-5.20); LYMPHOCYTES PERCENT AUTO 4 % (21-46); MONOCYTES ABSOLUTE AUTO 0.36 K/mm3 (0.16-1.47); MONOCYTES PERCENT AUTO 2 % (4-13); Mean Corpuscular HGB Conc 32.2 g/dL (31.5-36.5); Mean Corpuscular Volume 97 fL (80-100); NEUTROPHILS ABSOLUTE AUTO 20.91 K/mm3 (1.96-9.15); NEUTROPHILS PERCENT AUTO 94 % (41-73); NRBC ABSOLUTE 0.00 K/mm3 (0.00-0.02); NRBC Auto 0.0 /100 WBC (0.0-0.2); Platelet Count 275 K/mm3 (150-400); RDW Coefficient Variation 12.6 % (11.7-14.2); RDW Standard Deviation 45.1 fL (35.1-46.3)
[2025-02-21 05:15] LABS: Alanine Aminotransfer (ALT/SGP 39.0 U/L (12-78); Albumin, Blood 3.3 g/dL (3.4-5.0); Albumin/Globulin Ratio 0.8 (0.8-1.8); Anion Gap 9.0 mmol/L (3-11); Aspartate Aminotrans (AST/SGOT 14.0 U/L (12-37); Bilirubin, Total 0.4 mg/dL (0.1-1.0); Blood Urea Nitrogen 23.0 mg/dL (8-24); CO2, Blood 32.0 mmol/L (21-32); Calcium, Blood 8.6 mg/dL (8.5-10.1); Chloride, Blood 101.0 mmol/L (98-108); Creatinine, Blood 0.81 mg/dL (0.40-1.00); Globulin, Blood 4.0 g/dL (2.2-4.0); Glucose, Blood 165.0 mg/dL (70-99); Potassium, Blood 3.6 mmol/L (3.5-5.5); Sodium, Blood 138.0 mmol/L (136-145); Total Protein, Blood 7.3 g/dL (6.4-8.2)
--- NOTE | 2025-02-21 05:35 | NUR ---
SHIFT SUMMARY PATIENT ALERT AND ORIENTED X3. HAD NO COMPLAINTS OF PAIN. SLIGHTLY DYSPNIC UPON EXERTION. PATIENT ON 2 LITERS O2 VIA NC. CONTINUES ON AMIODARONE DRIP WITH HEART AFIB IN THE 110'S ON AVERAGE. VITAL SIGNS STABLE. NO ACUTE ISSUES NOTED OVERNIGHT. WILL CONTINUE TO MONITOR. CALL LIGHT WITHIN REACH.
[2025-02-21 08:13] VITALS: BP 118/57
[2025-02-21 12:46] VITALS: BP 118/56
[2025-02-21 16:29] LABS: Anion Gap 6.0 mmol/L (3-11); Blood Urea Nitrogen 29.0 mg/dL (8-24); CO2, Blood 34.0 mmol/L (21-32); Calcium, Blood 8.9 mg/dL (8.5-10.1); Chloride, Blood 102.0 mmol/L (98-108); Creatinine, Blood 1.07 mg/dL (0.40-1.00); Glucose, Blood 126.0 mg/dL (70-99); Potassium, Blood 4.3 mmol/L (3.5-5.5); Sodium, Blood 138.0 mmol/L (136-145)
--- NOTE | 2025-02-21 18:11 | NUR ---
SHIFT SUMMARY PT A/OX4 AND COOPERATIVE OF CARE. PT ABLE TO EXPRESS NEEDS AND CALLS APPROPIATE. PT HR REMAINED AFIB/AFLUT RANGING 90-130'S. OTHER VSS THROUGHOUT SHIFT WITH O2 SATS IN THE 90'SON RA. NO REPORT OF CHEST PAIN/PRESSURE. NO REPORT OF SOB/DYSPNEA. PT STARTEDON DIG IV PER ORDERS, AMIO GTT STOPPED. PT 1 PER ASSIST FOR LINE MANAGEMENT, TOLERATED WELL. P REMAINED ON HOME O2 LEVEL OF 2LNC.
[2025-02-21 20:32] VITALS: BP 108/62
[2025-02-21 23:37] VITALS: BP 117/73
[2025-02-22 04:35] LABS: BASOPHILS ABSOLUTE AUTO 0.01 K/mm3 (0.00-0.23); BASOPHILS PERCENT AUTO 0 % (0-2); EOSINOPHILS ABSOLUTE AUTO 0.00 K/mm3 (0.00-0.68); EOSINOPHILS PERCENT AUTO 0 % (0-6); Hematocrit 42.7 % (33.0-51.0); Hemoglobin 13.7 g/dL (11.5-16.0); IMMATURE GRAN ABSOLUTE AUTO 0.08 K/mm3 (0.00-0.10); IMMATURE GRAN PERCENT AUTO 0 % (0-1); LYMPHOCYTES ABSOLUTE AUTO 0.87 K/mm3 (0.84-5.20); LYMPHOCYTES PERCENT AUTO 5 % (21-46); MONOCYTES ABSOLUTE AUTO 0.41 K/mm3 (0.16-1.47); MONOCYTES PERCENT AUTO 2 % (4-13); Mean Corpuscular HGB Conc 32.1 g/dL (31.5-36.5); Mean Corpuscular Volume 97 fL (80-100); NEUTROPHILS ABSOLUTE AUTO 17.05 K/mm3 (1.96-9.15); NEUTROPHILS PERCENT AUTO 93 % (41-73); NRBC ABSOLUTE 0.00 K/mm3 (0.00-0.02); NRBC Auto 0.0 /100 WBC (0.0-0.2); Platelet Count 264 K/mm3 (150-400); RDW Coefficient Variation 13.1 % (11.7-14.2); RDW Standard Deviation 46.8 fL (35.1-46.3)
[2025-02-22 05:04] VITALS: BP 122/75
[2025-02-22 05:25] LABS: Anion Gap 6 mmol/L (3-11); Blood Urea Nitrogen 23 mg/dL (8-24); CO2, Blood 33 mmol/L (21-32); Calcium, Blood 8.6 mg/dL (8.5-10.1); Chloride, Blood 103 mmol/L (98-108); Creatinine, Blood 0.80 mg/dL (0.40-1.00); Glucose, Blood 148 mg/dL (70-99); Potassium, Blood 4.7 mmol/L (3.5-5.5); Sodium, Blood 137 mmol/L (136-145)
--- NOTE | 2025-02-22 05:59 | NUR ---
SHIFT SUMMARY A/OX4, COOPERATIVE WITH CARE, OBEYS COMMANDS, VERBALIZES NEEDS, DENIES PAIN. ON CONTINUOUS CARDIAC MONITORING, AFIB-AFLUTTER, HR 80'S-130'S. PT DENIES CHEST PAIN/PRESSURE. ON 2L NC, BREATHING IS SHALLOW AND LABORED WITH ACTIVITY OR EXERTION. SATS REMAINED ABOVE 95%. SHE IS INDEPENDENT IN THE ROOM AND USING THE TOILET. SHE USES HER CALL LIGHT APPROPRIATELY. NO ACUTE EVENTS OVERNIGHT.
[2025-02-22 07:58] VITALS: BP 128/85
--- NOTE | 2025-02-22 10:35 | NUR ---
PT DAUGHTER CONTACTED AND UPDATED ON PLAN OF CARE PER REQUEST.
[2025-02-22 11:34] VITALS: BP 122/70
[2025-02-22 15:49] VITALS: BP 122/78
--- NOTE | 2025-02-22 18:21 | NUR ---
SHIFT SUMMARY PT A&O X 4, COOPERATIVE WITH CARE AND USES CALL LIGHT APPROPRIATELY. PT IN AFIB/AFLUTTER, HR REACHES 130s ON EXERTION, OTHERWISE HR MAINTAINED 90-120s. ADDITIONAL DOSE OF DIGOXIN GIVEN THIS SHIFT PER MD ORDER. PT BASELINE 2L NC, SATS MAINTAINED >90%, INCREASED WOB ON EXERTION, QUICKLY RESOLVES AT REST. ALL OTHER VSS STABLE. PT IS SBA FOR LINE MANAGEMENT, TOLERATES WELL. DISCUSSED CARE PLAN WITH PATIENT.
[2025-02-22 20:11] VITALS: BP 117/71
[2025-02-23] VITALS (8 sets, daily range): BP systolic 118–142; BP diastolic 69–102
--- NOTE | 2025-02-23 06:23 | NUR ---
SHIFT SUMMARY PT A/OX4. PLEASANT AND COOPERATIVE. AMBULATORY IN ROOM WITH SBA. ON BASELINE O2 @ 2L/MIN NC. NO RESP DISTRESS OR REPORTS OF SOB. LS WHEEZES T/O, IMPROVED AFTER NEB TX. DENIED CHEST PAIN, CHEST PRESSURE, OR N/V. GOOD URINE OUTPUT THIS SHIFT. AFIB ON MONITOR WITH ECTOPY AT REST IN 90'S. HR INCREASED TO 120-130'S WITH MINIMAL EXERTION LIKE TRANSFERING FROM BED TO BSC. NO ACUTE EVENTS OVERNIGHT. CALL LIGHT IN REACH AND BED IN LOWEST POSITION.
--- NOTE | 2025-02-23 15:31 | NUR ---
PT IS A&Ox4 AND ABLE TO MAKE NEEDS KNOWN. SHE IS ON 2LNC (BASELINE) W/O2 SATS > 92%. SHE IS A SBA FOR AMBULATION. SHE IS SITTING UP IN BED W/DAUGHTER IN ROOM. NO NEEDS OR CONCERNS NOTED @ THIS TIME. BED IN LOW POSITION, CALL LIGHT AND PERSONAL BELONGINGS IN REACH.
[2025-02-24 04:31] VITALS: BP 150/94
[2025-02-24 04:48] LABS: Anion Gap 2 mmol/L (3-11); Blood Urea Nitrogen 23 mg/dL (8-24); CO2, Blood 35 mmol/L (21-32); Calcium, Blood 8.6 mg/dL (8.5-10.1); Chloride, Blood 105 mmol/L (98-108); Creatinine, Blood 0.79 mg/dL (0.40-1.00); Glucose, Blood 96 mg/dL (70-99); Potassium, Blood 4.3 mmol/L (3.5-5.5); Sodium, Blood 138 mmol/L (136-145)
--- NOTE | 2025-02-24 05:16 | NUR ---
END OF SHIFT REPORT PLAN OF CARE DISCUSSED AND PT STATES UNDERSTANDING. PT HAS PRN BREATHING TX IF NEEDED AND Q 4 WHILE AWAKE. PT DENIES SOB AND MAINTAINING SATS ON 2 LITERS NC WHICH IS HER HOME BASELINE.PT TO CALL FOR STANDBY ASSIST FOR RESTROOM NEEDS AND GETTING WEIGHED IN AM. HEART RATE IN AFIB RVR 90-130'S. 100 MG PO METOPROLOL ADMINISTERED. PT HAS AM DIGOXIN LEVEL WITH BMP IN AM. PLAN FOR DC TODAY.
[2025-02-24 08:07] VITALS: BP 144/90
[2025-02-24 11:39] VITALS: BP 140/97
[2025-02-24] MEDS ORDERED: FURO20 PO (11:47)
[2025-02-24] MEDS ORDERED: DIGOX125 MC1 PO (11:48)
[2025-02-24] MEDS ORDERED: PRED20 PO (11:48)
--- NOTE | 2025-02-24 13:25 | NUR ---
PT IS A&Ox4 AND ABLE TO MAKE NEEDS KNOWN. SHE IS ON 2LNC (BASELINE) W/O2 SAGTS > 92%. SHE IS A SBA FOR AMBULATION. SHE DISCHARGED HOME W/DAUGHTER AND ALL PERSONAL BELONGINGS.
== END 2025-02-24 13:22 | disposition home or self-care (01) | DRG 189 ==
LOC: ER 14:50 → ERHOLD 14:51 → PCU 14:51
PROVIDERS: Internal Medicine; Nurse Practitioner Acute Care; Student in an Organized Health Care Education/Training Program; ADMIT Internal Medicine
DX: J96.21 Acute and chronic respiratory failure with hypoxia (principal); J44.1 Chronic obstructive pulmonary disease with (acute) exacerbation; I50.20 Unspecified systolic (congestive) heart failure; I48.20 Chronic atrial fibrillation, unspecified; I48.0 Paroxysmal atrial fibrillation; I11.0 Hypertensive heart disease with heart failure; M81.0 Age-related osteoporosis without current pathological fracture; I44.7 Left bundle-branch block, unspecified; E78.5 Hyperlipidemia, unspecified; Z99.81 Dependence on supplemental oxygen; Z86.718 Personal history of other venous thrombosis and embolism; Z86.711 Personal history of pulmonary embolism; Z86.73 Personal history of transient ischemic attack (TIA), and cerebral infarction without residual deficits; Z79.01 Long term (current) use of anticoagulants; Z79.52 Long term (current) use of systemic steroids; Z79.899 Other long term (current) drug therapy; Z88.5 Allergy status to narcotic agent; Z88.7 Allergy status to serum and vaccine; Z87.891 Personal history of nicotine dependence; Z90.89 Acquired absence of other organs; Z98.890 Other specified postprocedural states
CPT/HCPCS: 0202U; 36415; 71046; 80048; 80053; 80162; 81003; 82803; 83880; 84145; 84484; 85025; 85027; 87637; 93005; 93010; 93306; 94640; 94664; 94760; 94762; 96365; 96375; 96376; 99285-25; A9270; G0378; J0282; J0456; J1160; J1938; J2919; J7050; J7512

== ENCOUNTER 2025-05-24 16:14 | Emergency (ER) | payer MEDICARE, OTHER ==
[~2025-05-24] VITALS: Ht 157.5 cm; Wt 72.6 kg
[~2025-05-24 16:14] MED LIST changes: +DIGOX125 MC1 PO; +FURO20 PO; +FURO80 PO; +POTA10T PO; +ROFL500T
[2025-05-24 19:27] LABS: BASOPHILS ABSOLUTE AUTO 0.03 K/mm3 (0.00-0.23); BASOPHILS PERCENT AUTO 0 % (0-2); EOSINOPHILS ABSOLUTE AUTO 0.04 K/mm3 (0.00-0.68); EOSINOPHILS PERCENT AUTO 1 % (0-6); Hematocrit 36.5 % (33.0-51.0); Hemoglobin 11.5 g/dL (11.5-16.0); IMMATURE GRAN ABSOLUTE AUTO 0.03 K/mm3 (0.00-0.10); IMMATURE GRAN PERCENT AUTO 0 % (0-1); LYMPHOCYTES ABSOLUTE AUTO 1.10 K/mm3 (0.84-5.20); LYMPHOCYTES PERCENT AUTO 14 % (21-46); MONOCYTES ABSOLUTE AUTO 0.49 K/mm3 (0.16-1.47); MONOCYTES PERCENT AUTO 6 % (4-13); Mean Corpuscular HGB Conc 31.5 g/dL (31.5-36.5); Mean Corpuscular Volume 96 fL (80-100); NEUTROPHILS ABSOLUTE AUTO 6.04 K/mm3 (1.96-9.15); NEUTROPHILS PERCENT AUTO 78 % (41-73); NRBC ABSOLUTE 0.00 K/mm3 (0.00-0.02); NRBC Auto 0.0 /100 WBC (0.0-0.2); Platelet Count 147 K/mm3 (150-400); RDW Coefficient Variation 12.6 % (11.7-14.2); RDW Standard Deviation 44.4 fL (35.1-46.3)
[2025-05-24] MEDS ORDERED: LOSARTAN POTASS25 M2 PO (19:51)
[2025-05-24 19:53] LABS: Alanine Aminotransfer (ALT/SGP 31.0 U/L (12-78); Albumin, Blood 3.6 g/dL (3.4-5.0); Albumin/Globulin Ratio 1.0 (0.8-1.8); Anion Gap 7.0 mmol/L (3-11); Aspartate Aminotrans (AST/SGOT 21.0 U/L (12-37); Bilirubin, Total 0.4 mg/dL (0.1-1.0); Blood Urea Nitrogen 16.0 mg/dL (8-24); CO2, Blood 31.0 mmol/L (21-32); Calcium, Blood 9.7 mg/dL (8.5-10.1); Chloride, Blood 104.0 mmol/L (98-108); Creatinine, Blood 0.59 mg/dL (0.40-1.00); Globulin, Blood 3.6 g/dL (2.2-4.0); Glucose, Blood 105.0 mg/dL (70-99); Potassium, Blood 3.4 mmol/L (3.5-5.5); Sodium, Blood 139.0 mmol/L (136-145); Total Protein, Blood 7.2 g/dL (6.4-8.2)
[2025-05-24] MEDS ORDERED: K-Dur10 MEQ (19:53)
[2025-05-24] MEDS ORDERED: Ipratropium/Albuterol SulF 2.5-0.5MG/3 ML Amp INH ONE (20:35)
[2025-05-24 22:00] VITALS: BP 140/100
== END 2025-05-24 22:07 | disposition home or self-care (01) ==
LOC: ER 16:14
PROVIDERS: Student in an Organized Health Care Education/Training Program
DX: J44.1 Chronic obstructive pulmonary disease with (acute) exacerbation (principal); R00.2 Palpitations; I11.0 Hypertensive heart disease with heart failure; I50.30 Unspecified diastolic (congestive) heart failure; Z86.79 Personal history of other diseases of the circulatory system; Z87.891 Personal history of nicotine dependence; Z86.73 Personal history of transient ischemic attack (TIA), and cerebral infarction without residual deficits; Z79.899 Other long term (current) drug therapy; Z88.5 Allergy status to narcotic agent; Z88.7 Allergy status to serum and vaccine
CPT/HCPCS: 71046; 80053; 83880; 85025; 93005; 93010; 99285-25